=== PATIENT | female | born 1965 | race Caucasian/White ===

== ENCOUNTER 2019-07-01 02:10 | Emergency (ER) | payer OTHER ==
[~2019-07-01] VITALS: Ht 152.4 cm; Wt 74.8 kg
[2019-07-01 02:10] VITALS: BP_SYST 155
--- NOTE | 2019-07-01 02:20 | NUR ---
Patient to ER bed Hallway chair to gown for evaluation. Side rails up.
--- NOTE | 2019-07-01 02:26 | NUR ---
Written and verbal consent obtained from patient for blood alcohol, name and verified by patient. Disinfected patient's skin with iodine that did not contain alcohol or other volatile organic compound. Collected the blood from the subject named by venipuncture, in the presence of [facility] Officers . Used a sterile, dry hypodermic needle and dry vacuum blood collection. Two dry vacuum blood collection was supplied by the officer named above. Withdrew a specimen of blood from R Hand of the subject named above. Inverted both blood tubes several times to ensure that the preservative and anticoagulant were thoroughly mixed in the blood specimen. I initialed both blood tube labels for identification. The labeled blood tubes were handed directly to the Officer named above. The blood tubes stopper remained in place while I had possession of the blood tubes. The Officer placed tubes into envelope and sealed it in my presence. Envelope initialed by myself and Officer named above. Patient tolerated well, bandage applied, and bleeding controlled.
--- NOTE | 2019-07-01 02:33 | NUR ---
Dr. Pierce bedside for pt eval
--- NOTE | 2019-07-01 02:35 | NUR ---
Pt BIB [facility] to ED needing medical clearance. No other injuries and or complaints noted. VSS no s/s of acute distress Resting on hallway chair while remaining in the custody of [facility] officers
[2019-07-01 03:00] VITALS: BP_SYST 149
--- NOTE | 2019-07-01 03:00 | NUR ---
Patient given written and verbal discharge instructions and verbalizes understanding. ER MD discussed with patient the results and treatment provided. Patient in stable condition. ID arm band removed. Patient educated on pain management and to follow up with PMD. Pain Scale 0/10 Opportunity for questions provided and answered.
== END 2019-07-01 03:00 ==
LOC: SED 02:10
DX: F10.129 Alcohol abuse with intoxication, unspecified (principal); V49.9XXA Car occupant (driver) (passenger) injured in unspecified traffic accident, initial encounter; Y93.89 Activity, other specified; Y92.413 State road as the place of occurrence of the external cause; Y99.8 Other external cause status; Y90.9 Presence of alcohol in blood, level not specified
CPT/HCPCS: 99283